=== PATIENT | male | born 1985 | race American Indian/Alaskan Native ===

== ENCOUNTER 2021-07-15 01:32 | Emergency (ER) | payer SELFPAY ==
[~2021-07-15 01:32] MED LIST: EPINEPHrine 1 MG/10 ML SYRINGE ONE
[2021-07-15] MEDS ORDERED: HYDROmorphone 1 MG/1 ML INJ IV NR (01:36)
[2021-07-15] MEDS ORDERED: ONDANSETRON 4 MG/2 ML INJ IV NR (01:36)
[2021-07-15] MEDS ORDERED: SODIUM CHLORIDE 0.9% 1000 ML 1,000 ML IV NR (01:37)
[2021-07-15] MEDS ORDERED: TETANUS,DIPH,PERTUSS(ACELL) VACCINE 0.5 ML SYRINGE IM ONE (01:38)
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
[2021-07-15 02:12] LABS: Basophils # (Auto) 0.1 K/mm3 (0.0-0.1); Basophils % (Auto) 0.5 % (0.0-1.8); Eosinophils # (Auto) 0.1 K/mm3 (0.0-0.4); Eosinophils % (Auto) 0.7 % (0.0-4.3); Hematocrit 41.1 % (35.5-45.6); Hemoglobin 13.3 gm/dl (11.8-15.2); Lymphocytes # (Auto) 4.5 K/mm3 (1.2-5.4); Lymphocytes % (Auto) 35.7 % (13.4-35.0); Mean Corpuscular HGB Conc 32 % (32-34); Mean Corpuscular Volume 94 fl (84-94); Monocytes # (Auto) 0.7 K/mm3 (0.0-0.8); Monocytes % (Auto) 5.8 % (0.0-7.3); Red Cell Distribution Width 15.9 % (13.2-15.2)
[2021-07-15 02:14] LABS: Platelet Count 119 K/mm3 (140-440)
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
[2021-07-15 02:41] LABS: BUN/Creatinine Ratio 11; Blood Urea Nitrogen 14 mg/dL (9-20); Calcium 8.5 mg/dL (8.4-10.2); Hemolysis Index 36
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
[2021-07-15] MEDS ORDERED: cephALEXin 500 MG CAP PO ONE (03:04)
[2021-07-15] MEDS ORDERED: LIDOCAINE 1%/EPINEPHRINE 1:100,000 VIAL (20 ML) INFILTRATI NR (03:15)
[2021-07-15] MEDS ORDERED: SODIUM CHLORIDE 0.9% 1000 ML 1,000 ML IV ONE (03:49)
[2021-07-15 05:08] VITALS: BP 82/33
== END 2021-07-15 05:13 | disposition short-term general hospital (02) ==
LOC: EDBD → ED 01:32
DX: S71.112A Laceration without foreign body, left thigh, initial encounter (principal); F10.129 Alcohol abuse with intoxication, unspecified; Y90.9 Presence of alcohol in blood, level not specified; W26.0XXA Contact with knife, initial encounter; Y93.89 Activity, other specified; Y92.89 Other specified places as the place of occurrence of the external cause; Y99.8 Other external cause status
CPT/HCPCS: 36415; 36430; 73552; 73706; 80048; 85025; 86850; 86900; 86901; 86920; 90471; 90715; 96361; 96374; 96375; 99291; J0171; J0690; J1170; J2405; J7030; P9016; Q9967; 80320; G0480